=== PATIENT | male | born 1995 | race Caucasian/White ===

== ENCOUNTER 2017-09-15 09:44 | Emergency (ER) | payer OTHER ==
[~2017-09-15] VITALS: Ht 180.3 cm; Wt 59.1 kg
[2017-09-15 09:51] VITALS: TEMP 37.4; Ht 180.3 cm; Wt 59.1 kg
[2017-09-15] MEDS ORDERED: ACETAMINOPHEN 325 MG TAB PO STA (10:14)
[2017-09-15 10:33] LABS: BASO % 0.1 %; BASO ABS # 0.01 K/uL (0-0.2); HEMATOCRIT 39.3 % (42-52); HEMOGLOBIN 13.6 g/dL (14.0-18.0); IG# 0.05 K/uL (0.00-0.02); LYMPH % 4.6 %; LYMPH ABS # 0.74 K/uL (1.2-3.4); MEAN CELL VOLUME 86.2 fL (80-100); MEAN CORPUSCULAR HEMOGLOBIN 29.8 pg (25-34); MEAN CORPUSCULAR HGB CONC 34.6 g/dl (32-36); MEAN PLATELET VOLUME 10.6 fL (7.4-10.4); MONO % 9.9 %; NEUT % 85.1 %; NEUT ABS # 13.72 K/uL (1.4-6.5); PLATELET COUNT 192 K/uL (130-400); RED CELL DISTRIBUTION WIDTH CV 12.4 % (11.5-14.5); RED CELL DISTRIBUTION WIDTH SD 39.4 fL (36.4-46.3); WHITE BLOOD COUNT 16.12 K/uL (4.8-10.8)
[2017-09-15 10:54] LABS: CALCIUM 9.4 mg/dl (8.5-10.1); CREATININE 1.12 mg/dl (0.60-1.40); POTASSIUM 3.6 mmol/L (3.5-5.1)
[2017-09-15 11:26] LABS: INFLUENZA B ANTIGEN Neg for Influ B (NEG)
[2017-09-15] MEDS ORDERED: AMPICILLIN/SULBACTAM SOD INJ 3,000 MG in SODIUM CHLORIDE 0.9% 100ML 100 ML IV ONE (11:45)
[2017-09-15] MEDS ORDERED: OPTIRAY 320 IV PRN (12:00)
--- NOTE | 2017-09-15 12:33 | DIAGNOSTIC IMAGING REPORT ---
SOFT TISSUE NECK WITH CLINICAL HISTORY: Left sided facial pain and swelling. COMPARISON STUDY: No previous studies for comparison. TECHNIQUE: Axial images of the neck were obtained following intravenous injection of 93 cc Optiray 320 IV. Sagittal and coronal reconstructions were viewed. FINDINGS: Visualized portions of the intracranial contents are unremarkable. Major vasculature of the neck is patent. There is moderate inflammation inferior to the left mandible which is likely odontogenic in etiology. A few prominent left-sided cervical lymph nodes are likely reactive. Note is made of a rim-enhancing 1.8 x 0.8 cm fluid collection along the inner inferior medial aspect of the body of the left mandible. This may be related to a periapical cyst/abscess of the left first mandibular molar. There is a second adjacent rim-enhancing fluid collection that measures 1.8 x 1 x 0.9 cm within the musculature of the floor the mouth, likely within the left hypoglossus muscle. There is moderate adjacent inflammation the airway is patent. Epiglottis is normal. No additional abscesses are identified. Lung apices are clear. There is no soft tissue gas. IMPRESSION: 1. Moderate left inferior facial inflammation centered on the left hemimandible suggestive of cellulitis, likely odontogenic in etiology. 1.8 x 0.8 cm abscess along the inferomedial aspect of the body of the left hemimandible. Additional adjacent 1.8 x 1 cm intramuscular abscess within the left hyoglossus muscle. This infectious process may be related to a periapical cyst/abscess of the left first mandibular molar. 2. Mild left cervical lymphadenopathy which is likely reactive. Electronically signed by: Geoff Carrera M.D. 09/15/2017 12:31 PM Dictated Date/Time: 09/15/2017 12:14 PM
[2017-09-15] MEDS ORDERED: AMOX875T PO (13:23)
[2017-09-15] MEDS ORDERED: OXYC1TAB3 PO (13:23)
[2017-09-15 14:12] VITALS: BP 109/70; PULSE 92; O2SAT 97
--- NOTE | 2017-09-15 15:53 | EMERGENCY ROOM VISIT NOTE ---
History Report prepared by Edin: Harjeet Banuelos Under the Supervision of: Dr. Jerzy Adams M.D. First contact with patient: 09:58 Chief Complaint: DENTAL PAIN Stated Complaint: DENTAL PAIN, SWELLING FACE - REF BY ORAL SURGEON Nursing Triage Summary: dental pain bottom left side for 1 week pt saw dentist yesterday and told to follow up with oral surgean next week no meds started History of Present Illness The patient is a 22 year old male who presents to the Emergency Room with complaints of worsening left sided dental pain beginning five days ago. The patient states that his pain began on the top and has moved to the bottom side of his mouth. He also complains of left facial swelling, vomiting, cough, body aches, and fever of 101.2 degrees. His body aches and cough began after his facial swelling. The patient denies sore throat, or diarrhea. He was seen by his dentist yesterday for his symptoms and was told that he had an infection of a lower molar and a cavity of a left upper molar. The patient was referred to an oral surgeon. He notes that he has pain with swallowing. He has taken Ibuprofen for his pain with his most recent dose being 2.5 hours ago. Source of History: patient Onset: Five days ago Position: teeth (left side) Quality: ache Timing: worsening Associated Symptoms: + fevers (101.2 degrees), + cough, + vomiting, No sorethroat, No diarrhea Note: Additional symptoms: body aches and left facial swelling. Review of Systems See HPI for pertinent positives & negatives. A total of 10 systems reviewed and were otherwise negative. Past Medical & Surgical Medical Problems: (1) No Known Active Medical Problems Family History No pertinent family history stated. Social History Smoking Status: Never Smoker Housing Status: lives with family Current/Historical Medications Scheduled Amoxicillin & Pot Clavulanate (Augmentin 875-125 mg), 875 MG PO BID Scheduled PRN Oxycodone Ir (Roxicodone Ir), 5 MG PO Q4H PRN for Pain Allergies Coded Allergies: No Known Allergies (Unverified , 09/15/17) Physical Exam Vital Signs Date Time Temp Pulse Resp B/P (MAP) Pulse Ox O2 Delivery O2 Flow Rate FiO2 09/15/17 14:12 92 16 109/70 97 09/15/17 11:30 92 16 109/70 97 Room Air 09/15/17 09:51 37.4 124 20 135/81 95 Room Air Physical Exam Constitutional: Vital signs reviewed. Eyes: Pupils are equal round reactive to light. Conjunctiva are noninjected. ENT: Pharynx is clear without erythema or exudate. Mucous membranes are moist. No percussion tenderness to the left upper and lower teeth. No signs of gingival hyperemia. No elevation of the tongue or tenderness to the sublingual space. No trismus. Soft tissue swelling to the left submandibular region. Neck supple without meningeal signs. Respiratory: Clear to auscultation bilaterally. Breath sounds are equal bilaterally. Cardiovascular: Regular rate and rhythm. No rubs or gallops. GI: Soft, nondistended and nontender. Bowel sounds are present. Musculoskeletal: No peripheral edema. No lower extremity tenderness. Integumentary: No cyanosis. Neurological: The patient is awake and alert. No focal deficits. Psychiatric: Normal affect. Medical Decision & Procedures ER Provider Diagnostic Interpretation: Radiology results as stated below per my review and the radiologist's interpretation: SOFT TISSUE NECK WITH FINDINGS: Visualized portions of the intracranial contents are unremarkable. Major vasculature of the neck is patent. There is moderate inflammation inferior to the left mandible which is likely odontogenic in etiology. A few prominent left-sided cervical lymph nodes are likely reactive. Note is made of a rim-enhancing 1.8 x 0.8 cm fluid collection along the inner inferior medial aspect of the body of the left mandible. This may be related to a periapical cyst/abscess of the left first mandibular molar. There is a second adjacent rim-enhancing fluid collection that measures 1.8 x 1 x 0.9 cm within the musculature of the floor the mouth, likely within the left hypoglossus muscle. There is moderate adjacent inflammation the airway is patent. Epiglottis is normal. No additional abscesses are identified. Lung apices are clear. There is no soft tissue gas. IMPRESSION: 1. Moderate left inferior facial inflammation centered on the left hemimandible suggestive of cellulitis, likely odontogenic in etiology. 1.8 x 0.8 cm abscess along the inferomedial aspect of the body of the left hemimandible. Additional adjacent 1.8 x 1 cm intramuscular abscess within the left hyoglossus muscle. This infectious process may be related to a periapical cyst/abscess of the left first mandibular molar. 2. Mild left cervical lymphadenopathy which is likely reactive. Electronically signed by: Geoff Carrera M.D. 09/15/2017 12:31 PM Laboratory Results 09/15/17 10:22 Red Blood Count 4.56, Mean Corpuscular Volume 86.2, Mean Corpuscular Hemoglobin 29.8, Mean Corpuscular Hemoglobin Concent 34.6, Mean Platelet Volume 10.6, Neutrophils (%) (Auto) 85.1, Lymphocytes (%) (Auto) 4.6, Monocytes (%) (Auto) 9.9, Eosinophils (%) (Auto) 0.0, Basophils (%) (Auto) 0.1, Neutrophils # (Auto) 13.72, Lymphocytes # (Auto) 0.74, Monocytes # (Auto) 1.60, Eosinophils # (Auto) 0.00, Basophils # (Auto) 0.01 09/15/17 10:22 Test 09/15/17 10:22 White Blood Count 16.12 K/uL (4.8-10.8) Red Blood Count 4.56 M/uL (4.7-6.1) Hemoglobin 13.6 g/dL (14.0-18.0) Hematocrit 39.3 % (42-52) Mean Corpuscular Volume 86.2 fL (80-100) Mean Corpuscular Hemoglobin 29.8 pg (25-34) Mean Corpuscular Hemoglobin Concent 34.6 g/dl (32-36) Platelet Count 192 K/uL (130-400) Mean Platelet Volume 10.6 fL (7.4-10.4) Neutrophils (%) (Auto) 85.1 % Lymphocytes (%) (Auto) 4.6 % Monocytes (%) (Auto) 9.9 % Eosinophils (%) (Auto) 0.0 % Basophils (%) (Auto) 0.1 % Neutrophils # (Auto) 13.72 K/uL (1.4-6.5) Lymphocytes # (Auto) 0.74 K/uL (1.2-3.4) Monocytes # (Auto) 1.60 K/uL (0.11-0.59) Eosinophils # (Auto) 0.00 K/uL (0-0.5) Basophils # (Auto) 0.01 K/uL (0-0.2) RDW Standard Deviation 39.4 fL (36.4-46.3) RDW Coefficient of Variation 12.4 % (11.5-14.5) Immature Granulocyte % (Auto) 0.3 % Immature Granulocyte # (Auto) 0.05 K/uL (0.00-0.02) Anion Gap 7.0 mmol/L (3-11) Est Creatinine Clear Calc Drug Dose 85.0 ml/min Estimated GFR () 106.0 Estimated GFR (Non- 91.5 BUN/Creatinine Ratio 14.0 (10-20) Calcium Level 9.4 mg/dl (8.5-10.1) Influenza Type A Antigen Neg for Influ A (NEG) Influenza Type B Antigen Neg for Influ B (NEG) Laboratory results as reviewed by me. Medications Administered Medications (Trade) Dose Ordered Sig/Dean Route Start Time Stop Time Status Last Admin Dose Admin Acetaminophen (Tylenol Tab) 650 mg NOW STAT PO 09/15/17 10:14 09/15/17 10:16 DC 09/15/17 10:21 650 MG Ampicillin Sodium/ Sulbactam Sodium 3000 mg/Sodium Chloride 108 ml @ 200 mls/hr ONE ONCE IV 09/15/17 11:45 09/15/17 12:20 DC 09/15/17 12:10 200 MLS/HR ED Course 1000: The patient was evaluated in room B4B. A complete history and physical exam was performed. 1014: Ordered Tylenol Tab 650 mg PO. 1140: I checked in on the patient and updated him on his test results. 1145: Ordered Ampicillin Sodium/Sulbactam Sodium 3000 mg/Sodium Chloride 108 ml @ 200 mls/hr IV. 1252: I reassessed the patient and explained his CT results to him. 1305: Upon reevaluation, the patient appeared to have improvement of his symptoms. I discussed tonight's findings with him. He verbalized agreement of the treatment plan. 1312: Dr. Valderrama's office does not take the patient's insurance. 1320: I discussed the new treatment plan with the patient. He verbalized agreement and understanding. The patient was discharged home. Medical Decision This is a 22-year-old male presents with facial swelling and pain. Differential diagnosis includes periapical abscess, facial abscess, cellulitis, Rob angina, retropharyngeal abscess. I did perform a limited focused review of portions of the patient's old chart on the electronic medical record. The patient has had no recent pertinent visits to this hospital. I did evaluate the patient as noted above. IV access was established. I did treat patient with Tylenol. He was also given Unasyn 3 g IV. I did order and review the patient's blood work as noted in the electronic medical record. His white blood cell count is elevated. Rapid flu testing is negative. After discussion with the patient, I did order a CT of the soft tissue neck. I did review the images myself as well as the radiology report as described above. He does have 2 abscesses as well as facial cellulitis. I did try to obtain the number of the oral surgeon that he was going to see and Sammy. He was able to give it to me and so I called Dr. Valderrama of [facility] was willing to see the patient today for treatment. Unfortunately the patient's insurance was not accepted by Dr. Valderrama. The patient was able to contact his dentist and obtained a number of his oral surgeon. I did speak to him on the phone and he stated he would be able to see the patient tomorrow morning for definitive treatment. He was discharged with a prescription for Augmentin and OxyIR for pain. [place] Drug Monitoring Program Search Results: patient reviewed within database, no issues identified (Unable to find patient of matching name) Medication Reconcilliation Current Medication List: was personally reviewed by me Blood Pressure Screening Patient's blood pressure: Elevated blood pressure Blood pressure disposition: Referred to PCP Consults Time Called: 1250 Consulting Physician: Dr. Valderrama - Oral Maxillofacial Surgery Returned Call: [phone] Valderrama of Oral Maxillofacial Surgery. We discussed the patient and his results. Dr. Valderrama recommends the patient be sent straight to his office. Additional Consults: Time Called: 1310 Consulted Physician: Dr. Diaz Returned Call: [phone] Additional Comments: I spoke with Dr. Diaz of Oral Surgery. We discussed the patient and his results. The patient will be seen in the office tomorrow. Impression Primary Impression: Facial abscess Additional Impressions: Cellulitis Periapical abscess Scribe Attestation The scribe's documentation has been prepared under my direct and personally reviewed by me in its entirety. I confirm that the note above accurately reflects all work, treatment, procedures, and medical decision making performed by me. Departure Information Dispostion Home / Self-Care Prescriptions Oxycodone Ir (Roxicodone Ir) 5 Mg Tab 5 MG PO Q4H Y for Pain, #14 TAB Prov: Jerzy Adams M.D. 09/15/17 Amoxicillin & Pot Clavulanate (Augmentin 875-125 mg) 1 Tab Tab 875 MG PO BID for 10 Days, #20 TAB Prov: Jerzy Adams M.D. 09/15/17 Referrals Bora Mirza M.D. (PCP) Forms HOME CARE DOCUMENTATION FORM, IMPORTANT VISIT INFORMATION Patient Instructions My [facility] Additional Instructions Follow up with your oral surgeon tomorrow for tooth extraction. Do not eat or drink anything after midnight in case you requires sedation. Return for any worsening symptoms. Problem Qualifiers Additional Impressions: Cellulitis Site of cellulitis: face Qualified Codes: L03.211 - Cellulitis of face
== END 2017-09-15 14:12 | disposition home or self-care (01) ==
LOC: C.EDB 09:46
DX: K04.7 Periapical abscess without sinus (principal); L03.211 Cellulitis of face; D72.829 Elevated white blood cell count, unspecified; R03.0 Elevated blood-pressure reading, without diagnosis of hypertension